=== PATIENT | male | born 1965 | race African-American/Black ===

== ENCOUNTER 2017-01-05 14:27 | Outpatient (CLI) | payer BC ==
[2016-10-31 20:09] VITALS: BP 110/68
[2017-01-05 15:29] LABS: eGFR (African) > 60; eGFR (Non-African) > 60
== END 2017-01-05 14:30 ==
LOC: LAB 14:27
PROVIDERS: ATTEND Physician Assistant
DX: E11.9 Type 2 diabetes mellitus without complications (principal); I10 Essential (primary) hypertension; E78.00 Pure hypercholesterolemia, unspecified
CPT/HCPCS: 36415; 80053; 80061; 83036

== ENCOUNTER 2017-01-22 07:36 | Emergency (ER) | payer BC, OTHER ==
[2017-01-22] MEDS ORDERED: Lidocaine 1% 5ml(IM or SUTURE)(PAIN CLINIC) ONE (07:48)
[2017-01-22] MEDS ORDERED: Lidocaine 1% 5ml(IM or SUTURE)(PAIN CLINIC) IJ ONE (07:49)
--- NOTE | 2017-01-22 08:00 | ED Physician Documentation ---
General Adult - HISTORIAN Historian: patient - HPI Stated Complaint: Left Finger Injury Chief Complaint: General Adult Onset: minutes Timing: still present Severity: moderate Further Comments: yes (Pt is a 51 yo male with injury to his L index finger after dropping a heavy board on his finger. Some bleeding. Tetanus is utd.) - ROS CONST: no problems EYES/ENT: none CVS/RESP: none GI/: none MS/SKIN/LYMPH: other (L index finger injury/laceration) - PAST HX Past History: other (DM, HTN) Allergies/Adverse Reactions: Allergies Allergy/AdvReac Type Severity Reaction Status Date / Time Iodinated Contrast Media - Allergy Verified 01/22/17 07:59 IV Dye Home Medications: Ambulatory Orders Medication Instructions Recorded Metformin HCl [Glucophage] 500 mg PO [id number] 09/17/15 Cephalexin [Keflex] 500 mg PO Q8H #15 capsule 01/22/17 Lisinopril [Lisinopril] 20 mg PO DAILY 01/22/17 Naproxen [Naprosyn] 500 mg PO DAILY 01/22/17 - SOCIAL HX Smoking History: cigarettes - FAMILY HX Family History: No - VITAL SIGNS Vital Signs: Vital Signs Temp Pulse Resp BP Pulse Ox 98 F 80 20 174/102 99 01/22/17 07:40 01/22/17 07:40 01/22/17 07:40 01/22/17 07:40 01/22/17 07:40 - REVIEWED ASSESSMENTS Nursing Assessment Reviewed: Yes Vitals Reviewed: Yes Procedures Wound Location: upper extremity (L index finger laceration with partial nail avulsion) Wound's Depth, Shape: irregular Wound Explored: clean Irrigated w/ Saline (ccs): 50 Betadine Prep?: Yes Anesthesia: 1% Lidocaine (digital block) Volume of Anesthetic: 8cc Wound Debrided: minimal Wound Repaired With: sutures (2 sutures through fingernail to secure it in place ) Suture Size/Type: 4:0, nylon Number of Sutures: 5 Sterile Dressing Applied?: Yes Progress - Progress Progress: X-ray L index finger: 3 mm avulsion fracture fragment medial aspect of the left index finger distal phalanx with adjacent soft tissue swelling and laceration. Degenerative changes interphalangeal joints left 3rd finger. tetanus utd Triple abx Rx keflex 500 mg tid x 7 days. F/u pcp in 7 days for suture removal. ED Results Lab/Radiology - Orders Orders: ED Orders Category Date Time Status FINGER 2 VIEWS OR MORE [RAD] Stat Exams 01/22/17 Ordered Lidocaine 1% 5ml(IM or SUTURE) [Xylocaine] Med 01/22/17 07:48 Discontinued 100 mg .ROUTE .STK-MED ONE Lidocaine 1% 5ml(IM or SUTURE) [Xylocaine] Med 01/22/17 07:49 Discontinued 50 mg IJ NOW ONE General Adult Physical Exam - PHYSICAL EXAM GENERAL APPEARANCE: mild distress NECK: normal inspection, supple RESPIRATORY: no resp distress BACK: normal inspection SKIN: other (laceration with partial nail avulsion L index finger.) EXTREMITIES: normal range of motion, other (laceration with partial nail avulsion L index finger.) NEURO: oriented X3, motor nml, sensation nml Discharge Clincal Impression: L index finger laceration, small avulsion fracture, L index Prescriptions: Cephalexin [Keflex] 500 mg PO Q8H #15 capsule Referrals: Sana Wren PA [Primary Care Provider] - Home Medications: Ambulatory Orders Metformin HCl [Glucophage] 500 mg PO [id number] 09/17/15 Cephalexin [Keflex] 500 mg PO Q8H #15 capsule 01/22/17 Lisinopril [Lisinopril] 20 mg PO DAILY 01/22/17 Naproxen [Naprosyn] 500 mg PO DAILY 01/22/17 Condition: Good Disposition: 01 HOME, SELF-CARE Decision to Admit: NO Decision Time: 08:58
[2017-01-22 09:44] VITALS: BP 158/68
--- NOTE | 2017-01-22 15:52 | Diagnostic Imaging Report ---
BRENDA ESTRADA [facility] [address] [facility] [address] 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 Avulsion fracture fragment left index finger distal phalynx medial aspect with adjacent soft tissue swelling and laceration Electronically signed on Jan 22, 2017 8:11:57 AM TAFE TEACHER by: Holly LOERA
== END 2017-01-22 09:40 | disposition home or self-care (01) ==
LOC: ED 07:36
DX: S62.621B Displaced fracture of middle phalanx of left index finger, initial encounter for open fracture (principal); W23.1XXA Caught, crushed, jammed, or pinched between stationary objects, initial encounter; Y99.0 Civilian activity done for income or pay; Y93.9 Activity, unspecified
CPT/HCPCS: 12001; 73140; 99283

== ENCOUNTER 2017-06-01 14:40 | Outpatient (CLI) | payer BC ==
[2017-06-01 15:21] LABS: eGFR (African) > 60; eGFR (Non-African) > 60
== END 2017-06-01 14:42 ==
LOC: LAB 14:40
PROVIDERS: ATTEND Physician Assistant
DX: E11.9 Type 2 diabetes mellitus without complications (principal); I10 Essential (primary) hypertension; R74.8 Abnormal levels of other serum enzymes
CPT/HCPCS: 36415; 80053; 80074; 83036

== ENCOUNTER 2017-06-21 16:45 | Emergency (ER) | payer BC ==
[2017-06-21 17:35] LABS: BASOPHILS % 0.5 (0.0-1.5); EOSINOPHILS % 3.3 % (0.0-6.8); MEAN CORPUSCULAR VOLUME 87.4 fl (80.0-100.0); MONOCYTES % 5.3 % (0.0-11.0); NEUTROPHILS # 6.3 # k/uL (1.4-7.7)
[2017-06-21 17:51] LABS: eGFR (African) > 60; eGFR (Non-African) > 60
[2017-06-21] MEDS ORDERED: 0.9 % SODIUM CHLORIDE 1,000 ML IV ONE ×2 (18:01→19:10)
--- NOTE | 2017-06-21 18:10 | ED Physician Documentation ---
General Adult - HISTORIAN Historian: patient - HPI Stated Complaint: headache , malaise, feeling "foggy" Chief Complaint: General Adult Onset: days ago Timing: still present Severity: moderate Further Comments: yes (Pt is a 52 yo aa male who has "been feeling foggy." He thinks his bp might be high. Pt also has a headache and malaise. No chest pain , sob. Pt has been having dry mouth and throat and feels like his abdomen is sore all over.) - ROS CONST: weakness EYES/ENT: other (dry mouth and throat) CVS/RESP: none GI/: other (chronic abd soreness/ ? muscle ache) MS/SKIN/LYMPH: none NEURO/PSYCH: other (feeling foggy) - PAST HX Past History: hypertension, other (DM) Allergies/Adverse Reactions: Allergies Allergy/AdvReac Type Severity Reaction Status Date / Time Iodinated Contrast Media - Allergy Verified 06/21/17 17:06 IV Dye Home Medications: Ambulatory Orders Medication Instructions Recorded Lisinopril [Lisinopril] 20 mg PO DAILY 01/22/17 Colchicine [Colcrys] 0.6 mg PO DAILY 06/21/17 - SOCIAL HX Smoking History: cigarettes Alcohol Use: heavy - FAMILY HX Family History: Yes (Sister: ovarian cancer. 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 Pt has some of the signs of Sjogren's syndrome. F/u pcp. ED Results Lab/Radiology - Lab Results Lab Results: Lab Results 06/21/17 06/21/17 06/21/17 17:30 17:30 17:30 WBC 9.30 K/ul K/ul (4.00-12.00) RBC 4.90 M/ul M/ul (3.90-5.20) Hgb 14.7 g/dL g/dL (12.0-18.0) Hct 42.8 % % (37.0-53.0) MCV 87.4 fl fl (80.0-100.0) MCH 30.0 pg pg (28.0-34.0) MCHC 34.3 g/dL g/dL (30.0-36.0) RDW 14.7 % H % (11.3-14.3) Plt Count 277 K/mm3 K/mm3 (130-400) Neut % (Auto) 67.8 % % (39.0-79.0) Lymph % (Auto) 21.7 % % (16.0-50.0) [place] % (Auto) 5.3 % % (0.0-11.0) Eos % (Auto) 3.3 % % (0.0-6.8) Baso % (Auto) 0.5 (0.0-1.5) Neut # (Auto) 6.3 # k/uL # k/uL (1.4-7.7) Lymph # (Auto) 2.0 # k/uL # k/uL (0.6-4.0) [place]linger # (Auto) 0.5 # k/uL # k/uL (0.0-0.9) Eos # (Auto) 0.3 # k/uL # k/uL (0.0-0.6) Baso # (Auto) 0.0 # k/uL # k/uL (0.0-0.5) Reactive Lymphs % 1.3 % % (0.0-5.0) Reactive Lymphs # 0.1 # k/uL # k/uL (0.0-0.8) Sodium 140 mmol/L mmol/L (136-145) Potassium 4.4 mmol/L mmol/L (3.5-5.0) Chloride 103 mmol/L mmol/L (98-110) Carbon Dioxide 28 mmol/L mmol/L (20-32) BUN 26 mg/dL mg/dL (10-26) Creatinine 1.1 mg/dL mg/dL (0.4-1.5) Estimated Creat Clear 123 Est GFR ( Amer) > 60 (60 - ) Est GFR (Non-Af Amer) > 60 (60 - ) Glucose 131 mg/dL H mg/dL (70-99) Calcium 10.1 mg/dL mg/dL (8.5-10.5) Total Bilirubin 0.8 mg/dL mg/dL (0.2-1.2) AST 35 U/L U/L (0-41) ALT 41 U/L U/L (0-45) Alkaline Phosphatase 79 U/L U/L (46-116) Creatine Kinase 794 U/L H U/L (0-225) Troponin I < 0.03 ng/mL L ng/mL (0.03-0.06) Total Protein 7.8 g/dL g/dL (6.0-8.5) Albumin 5.0 g/dL g/dL (3.0-5.5) - Orders Orders: ED Orders Category Date Time Status Orthostatics 1T Care 06/21/17 17:[address] IV Lock 1T Care 06/21/17 17:10 Active BNP [NT-proBNP] Stat Lab 06/21/17 17:30 Received CBC/PLATELET/DIFF Routine Lab 06/21/17 17:30 Completed CKMB Stat Lab 06/21/17 17:30 Received CMP Routine Lab 06/21/17 17:30 Completed CREATINE KINASE Routine Lab 06/21/17 17:30 Completed TROPONIN I (cTnI) Stat Lab 06/21/17 17:30 Completed UA [URINALYSIS] Routine Lab 06/21/17 Ordered 0.9 % Sodium Chloride [Normal Saline] 1,000 ml Med 06/21/17 18:01 Active IV Q1H EKG WITH COMPARISON Stat Ther 06/21/17 17:09 Ordered General Adult Physical Exam - PHYSICAL EXAM GENERAL APPEARANCE: mild distress EENT: eye inspection normal, dry mucous membranes NECK: normal inspection, supple RESPIRATORY: no resp distress, chest non-tender, breath sounds normal CVS: reg rate & rhythm, heart sounds normal ABDOMEN: soft, normal bowel sounds, tenderness (superficial mild tenderness (? muscle)) BACK: normal inspection, no CVA tenderness SKIN: warm/dry, normal color EXTREMITIES: non-tender, normal range of motion NEURO: oriented X3, motor nml, sensation nml Discharge Clincal Impression: Malaise, mild rhabdomyolysis Referrals: Sana Wren PA [Primary Care Provider] - Home Medications: Ambulatory Orders Lisinopril [Lisinopril] 20 mg PO DAILY 01/22/17 Colchicine [Colcrys] 0.6 mg PO DAILY 06/21/17 Condition: Stable Disposition: 01 HOME, SELF-CARE Decision to Admit: NO Decision Time: 07:45
[2017-06-21] MEDS ORDERED: ACETAMINOPHEN 325 MG TABLET PO ONE (18:33)
[2017-06-21 20:20] VITALS: BP 149/82
[2017-06-22 05:32] LABS: APPEARANCE,URINE CLEAR (CLEAR); COLOR,URINE YELLOW (YELLOW); OCCULT BLOOD,URINE NEGATIVE (NEGATIVE); UROBILINOGEN URINE 0.2 Eu (0.2-1.0)
== END 2017-06-21 20:24 | disposition home or self-care (01) ==
LOC: ED 16:45
DX: R53.81 Other malaise (principal); M62.82 Rhabdomyolysis
CPT/HCPCS: 80053; 82550; 82553; 83880; 84484; 85025; J7030; 81002; 96360; 99283; S1016

== ENCOUNTER 2017-10-05 16:57 | Emergency (ER) | payer BC, OTHER ==
[2017-10-05] MEDS ORDERED: LISINOPRIL 20 MG TABLET PO ONE (17:27)
--- NOTE | 2017-10-05 17:33 | ED Physician Documentation ---
Headache - HISTORIAN Historian: patient - HPI Stated Complaint: headache Chief Complaint: Headache Additional Information: headache today, last bp check > 1 year ago Onset: hours (5) Timing: abrupt New Gradual Onset: Yes Exposure To: none Severity: moderate Quality: throbbing Associated Symptoms: dizziness Preceding Symptoms: denies: visual disturbance, typical of prior aura(s) Exacerbated By: denies: light, noise, movement, position Further Comments: no - ROS NEURO/PSYCH: denies: confusion, anxiety, depression, fainting EYES/ENT: denies: sore throat, difficulty swallowing, sinus pain, drainage CVS/RESP: none GI/: denies: abdominal pain, diarrhea, problems urinating, incontinence MS/SKIN/LYMPH: denies: muscle aches, back pain, rash, skin lesions, swollen glands all systems neg except as marked: Yes - PAST HX Medical History: hypertension, other (gout) Surgical History: no surgical history Immunizations: referred to PCP Allergies/Adverse Reactions: Allergies Allergy/AdvReac Type Severity Reaction Status Date / Time Iodinated Contrast Media - Allergy Verified 10/05/17 17:53 IV Dye Home Medications: Ambulatory Orders Medication Instructions Recorded Lisinopril [Lisinopril] 20 mg PO DAILY 01/22/17 Colchicine [Colcrys] 0.6 mg PO DAILY 06/21/17 - SOCIAL HX Smoking History: cigarettes Alcohol Use: heavy Drug Use: none - Family HX Family History: none - VITAL SIGNS Vital Signs: Vital Signs Temp Pulse Resp BP Pulse Ox 97.8 F 79 20 163/97 97 10/05/17 16:57 10/05/17 17:59 10/05/17 17:59 10/05/17 17:59 10/05/17 17:59 - REVIEWED ASSESSMENTS Nursing Assessment Reviewed: Yes Vitals Reviewed: Yes Progress - Results/Orders Results/Orders: no testing ordered - Progress Progress: pt. given 20 mg p.o. Lisinopril and discharged Critical Care Note - Critical Care Note Total Time (mins): 0 ED Results Lab/Radiology - Lab Results Lab Results: none ordered - Radiology Radiology Impressions: none ordered - Orders Orders: ED Orders Category Date Time Status Lisinopril [Prinivil] Med 10/05/17 17:27 Discontinued 20 mg PO NOW ONE Headache Physical Exam - EXAM General Appearance: no acute distress, alert EENT: no facial swelling, eyes nml inspection, PERRL Neck: normal inspection, thyroid normal, supple Respiratory: no resp distress, chest non-tender, breath sounds normal CVS: reg. rate & rhythm, heart sounds nml Abdomen: non-tender, no organomegaly, nml bowel sounds, no distention Skin: color nml, no rash Extremitites: non-tender, normal range of motion, no evidence of injury, no edema - NEURO/PSYCH Higher Functions: alert, oriented x3, nml speech, mood/affect nml Cranial: nml as tested, no evidence of acute CVA Cerebellar: nml as tested Sensorimotor: motor nml, sensation nml Discharge Clincal Impression: Essential hypertension Referrals: Primary Doctor,No [Primary Care Provider] - 2 Days Comments: discharged with script for lisinopril 20 mg #60 1 p.o. bid Condition: Stable Disposition: 01 HOME, SELF-CARE Decision to Admit: NO Decision Time: 17:32
[2017-10-05 18:01] VITALS: BP 163/97
== END 2017-10-05 17:58 | disposition home or self-care (01) ==
LOC: ED 16:57
DX: I10 Essential (primary) hypertension (principal)
CPT/HCPCS: 99283

== ENCOUNTER 2018-02-23 10:43 | Emergency (ER) | payer BC ==
--- NOTE | 2018-02-23 10:56 | ED Physician Documentation ---
Shoulder Injury/Pain - HISTORIAN Historian: patient - HPI Stated Complaint: left shoulder pain Chief Complaint: Shoulder Injury/ Pain Onset: other ("years ago" he hurt his left shoulder and he has never seen a "dr about the pain" He states on and off he has had some pain but this pain kept him from going to work. He does have high blood pressure and bacteria in his stomach but he has not filled his meds for his stomach. ) Where: other (not sure where) Pain: pain intermittent Context: fall Associated Symptoms: denies: weakness, tingling, unable to move shoulder, numbness Further Comments: yes (Pain with active elevation. He has not tried OTC meds) - ROS CONST: no problems CVS/RESP: denies: chest pain, shortness of breath, cough GI/: denies: vomiting MS/SKIN/LYMPH: denies: neck pain, back pain, rash NEURO: denies: headache, anxiety, depression - PAST HX Past History: diabetes Type 2, other (HTN ) Immunizations: UTD Allergies/Adverse Reactions: Allergies Allergy/AdvReac Type Severity Reaction Status Date / Time Iodinated Contrast Media - Allergy Verified 02/23/18 11:01 IV Dye Home Medications: Ambulatory Orders Medication Instructions Recorded Lisinopril [Lisinopril] 20 mg PO DAILY 01/22/17 Colchicine [Colcrys] 0.6 mg PO DAILY 06/21/17 - SOCIAL HX Smoking History: cigarettes Alcohol Use: none Drug Use: none - FAMILY HX Family History: none - VITAL SIGNS Vital Signs: Vital Signs Temp Pulse Resp BP Pulse Ox 70 18 175/94 98 02/23/18 10:45 02/23/18 10:45 02/23/18 11:09 02/23/18 10:45 - REVIEWED ASSESSMENT Nursing Assessment Reviewed: Yes Vitals Reviewed: Yes Shoulder Injury Physical Exam - Physical Exam General Appearance: no acute distress Shoulder: no acute distress, no dislocation, limited ROM (active elevation ), other (Pulse + - sensation + cap refill + ). No: soft-tissue tenderness, bony tenderness, swelling, deformity Upper Extremity: no injury below shoulder Neuro: sensation nml, motor nml Vascular: no vascular compromise, motor nml, sensation nml Skin: warm/dry, normal color Respiratory: chest non-tender, breath sounds nml, no resp. distress, heart sounds nml CVS: reg rate & rhythm, heart sounds normal, no murmur Abdomen: soft Discharge Clincal Impression: Chronic left shoulder pain Referrals: Primary Doctor,No [Primary Care Provider] - 2 Days Additional Instructions: 1. Take meds 2. Follow up with PCP on HTN med changes 3. Ibuprofen 800 mg Take 1 by mouth ever 12 hours as needed for pain 4. Cyclobenzaprine 10 mg take by mouth every 8 hours as needed for pain 5. Ice 6. Return to ER for increased symptoms or concerns Condition: Stable Disposition: 01 HOME, SELF-CARE Decision to Admit: NO Date of Decison to Admit: 02/23/18 Decision Time: 11:14
[2018-02-23 11:18] VITALS: BP 163/76
== END 2018-02-23 11:16 | disposition home or self-care (01) ==
LOC: ED 10:43
DX: M25.512 Pain in left shoulder (principal)
CPT/HCPCS: 99282

== ENCOUNTER 2018-05-01 10:47 | Outpatient (CLI) | payer BC | END 2018-05-01 10:50 | LOC: POD 10:47 | PROVIDERS: ATTEND Podiatrist Public Medicine | DX: E11.9 Type 2 diabetes mellitus without complications (principal); M20.11 Hallux valgus (acquired), right foot; M20.12 Hallux valgus (acquired), left foot; M21.41 Flat foot [pes planus] (acquired), right foot; M21.42 Flat foot [pes planus] (acquired), left foot; B35.1 Tinea unguium; L84 Corns and callosities; L60.0 Ingrowing nail; M79.674 Pain in right toe(s); M79.675 Pain in left toe(s) | CPT/HCPCS: 11721; 99213 ==

== ENCOUNTER 2018-10-23 11:13 | Emergency (ER) | payer BC, OTHER ==
--- NOTE | 2018-10-23 11:28 | ED Physician Documentation ---
Lower Extremity Problem - HISTORIAN Historian: patient - HPI Stated Complaint: right knee locking up Chief Complaint: Lower Extremity Problem Additional Information: Patient presents to ED with a 2-3 month history of right knee locking. He states his right knee has been popping more lately and began to lock into the straight position about 2-3 months ago. He has the same problem on his left knee years ago which was fixed by surgery. He denies the knee giving out. Location of Injury: R knee Onset: days ago (90) Timing: still present Duration: intermittent episodes Recent Injury: No Where: home Severity: mild Quality: other (right knee locks up) Exacerbated By: nothing Relieved By: nothing Associated Symptoms: denies: chest pain, shortness of breath - ROS CONST: denies: fever MS/SKIN/LYMPH: denies: calf pain, joint pain CVS/RESP: none GI/: none EYES/ENT: none - PAST HX Past History: none PE Risk Factors: none Surgeries/Procedures: none Allergies/Adverse Reactions: Allergies Allergy/AdvReac Type Severity Reaction Status Date / Time Iodinated Contrast- Oral and Allergy Verified 10/23/18 11:54 IV Dye [Iodinated Contrast Media - IV Dye] Home Medications: Ambulatory Orders Medication Instructions Recorded Lisinopril 20 mg PO DAILY 01/22/17 Colchicine [Colcrys] 0.6 mg PO DAILY 06/21/17 - SOCIAL HX Smoking History: non-smoker Alcohol Use: none Drug Use: none - FAMILY HX Family History: none - VITAL SIGNS Vital Signs: Vital Signs Temp Pulse Resp BP Pulse Ox 97.5 F L 93 H 18 146/87 99 10/23/18 11:22 10/23/18 11:22 10/23/18 11:22 10/23/18 11:22 10/23/18 11:22 - REVIEWED ASSESSMENTS Nursing Assessment Reviewed: Yes Vitals Reviewed: Yes ED Results Lab/Radiology - Radiology Radiology Impressions: 3 views of the right knee History: RT KNEE, PT STATES RT KNEE HAS BEEN LOCKING UP X3/4 MONTHS. NO KNOWN INJURY no comparison studies No obvious evidence of acute fracture or dislocation of the right knee. Patellar enthesophytes are present. No suprapatellar effusion Impression: No evidence of acute fracture or dislocation of the right knee. Patellar enthesophytes. Electronically signed on Oct 23, 2018 12:18:51 PM BULK PICKER by: Holly Souza - Orders Orders: ED Orders Category Date Time Status KNEE 3 VIEWS [RAD] Stat Exams 10/23/18 Ordered Lower Extremity Problem - EXAM General Appearance: no distress Hips: right hip: non-tender Legs: right: non-tender Knees: right: non-tender, normal range of motion, no evidence of injury, swelling Ankle: right: non-tender Foot: right foot: non-tender Neuro/Tendon: normal sensation EENT: RADHA RESPIRATORY: no resp distress, breath sounds normal CVS: reg rate & rhythm JOINT: Nml gait/weight bearing VASCULAR: no vascular compromise, pulses full/equal NEURO/PSYCH: oriented X3, motor nml SKIN: warm/dry BACK: normal inspection Discharge Clincal Impression: Locking of right knee Referrals: Primary Doctor,No [Primary Care Provider] - 2 Days Additional Instructions: 1. tylenol and/or ibuprofen as needed for pain 2. Follow up with PCP within 1 week for orthopedic referral 3. Return to ED if knee locks in position and will not move. Condition: Stable Disposition: 01 HOME, SELF-CARE Decision to Admit: NO Date of Decison to Admit: 10/23/18 Decision Time: 12:24
[2018-10-23 11:53] VITALS: BP 146/87
--- NOTE | 2018-10-24 03:43 | Diagnostic Imaging Report ---
VIRGINIA ONEILL [facility] [address] [address] [facility] [address] [place], [place]. [address] Report Submission Date: Oct 23, 2018 12:18:51 PM BOOM MASTER Patient Study Name: MARICRUZ ROGERS Date: Oct 23, 2018 11:34:56 AM BOOM MASTER Modality Type: DX Gender: M Description: LOWER EXTREMITY : 63 Institution: [facility] Physician: VIRGINIA ONEILL 3 views of the right knee History: RT KNEE, PT STATES RT KNEE HAS BEEN LOCKING UP X3/4 MONTHS. NO KNOWN INJURY no comparison studies No obvious evidence of acute fracture or dislocation of the right knee. Patellar enthesophytes are present. No suprapatellar effusion Impression: No evidence of acute fracture or dislocation of the right knee. Patellar enthesophytes. Electronically signed on Oct 23, 2018 12:18:51 PM BOOM MASTER by: Holly LOERA
== END 2018-10-23 12:28 | disposition home or self-care (01) ==
LOC: ED 11:13
DX: M23.91 Unspecified internal derangement of right knee (principal)
CPT/HCPCS: 73562; 99282; 99283

== ENCOUNTER 2019-07-14 10:58 | Emergency (ER) | payer BC, OTHER ==
[2019-07-14 11:39] LABS: BASOPHILS % 0.3 % (0.0-1.5); NEUTROPHILS # 5.2 # k/uL (1.4-7.7)
[2019-07-14 11:52] LABS: eGFR (Non-African) > 60
--- NOTE | 2019-07-14 12:21 | ED Physician Documentation ---
General Adult - HISTORIAN Historian: patient - HPI Stated Complaint: just dont feel right Chief Complaint: General Adult Onset: days ago (Sunday) Further Comments: yes (54 year old male patient presents with complaint of "don't feel right". Patient reports symptoms started Sunday, "I didn't feel good enough to go to work". Patient denies CP, SOB, N/V, fever, cough or chills.) - ROS CONST: weakness EYES/ENT: none CVS/RESP: none GI/: none MS/SKIN/LYMPH: none NEURO/PSYCH: denies: headache, fainting, dizziness, tingling, numbness, difficulty walking, difficulty with speech, anxiety, depression, other - PAST HX Past History: hypertension, other (Prostate CA) Other History: diabetes Type 2 Surgeries/Procedures: other Allergies/Adverse Reactions: Allergies Allergy/AdvReac Type Severity Reaction Status Date / Time Iodinated Contrast Media Allergy Verified 07/14/19 11:14 [Iodinated Contrast Media - IV Dye] Home Medications: Ambulatory Orders Medication Instructions Recorded Lisinopril 20 mg PO DAILY 01/22/17 Colchicine [Colcrys] 0.6 mg PO DAILY 06/21/17 - SOCIAL HX Smoking History: cigarettes - FAMILY HX Family History: No - VITAL SIGNS Vital Signs: Vital Signs Temp Pulse Resp BP Pulse Ox 97.2 F L 86 16 136/100 97 07/14/19 11:01 07/14/19 11:01 07/14/19 11:01 07/14/19 11:01 07/14/19 11:01 - REVIEWED ASSESSMENTS Nursing Assessment Reviewed: Yes Vitals Reviewed: Yes Progress - Progress Progress: Lab work reviewed. Patient requesting work note for Sunday through Sunday. Explained work note for today's visit would be provided. ED Results Lab/Radiology - Lab Results Lab Results: Lab Results 07/14/19 07/14/19 11:34 11:34 WBC 7.50 K/ul K/ul (4.00-12.00) RBC 5.21 M/ul H M/ul (3.90-5.20) Hgb 14.9 g/dL g/dL (12.0-18.0) Hct 44.3 % % (37.0-53.0) MCV 85.0 fl fl (80.0-100.0) MCH 28.6 pg pg (28.0-34.0) MCHC 33.6 g/dL g/dL (30.0-36.0) RDW 13.0 % % (11.3-14.3) Plt Count 237 K/mm3 K/mm3 (130-400) Neut % (Auto) 69.6 % % (39.0-79.0) Lymph % (Auto) 19.0 % % (16.0-50.0) [place] % (Auto) 7.4 % % (0.0-11.0) Eos % (Auto) 3.7 % % (0.0-6.8) Baso % (Auto) 0.3 % % (0.0-1.5) Neut # (Auto) 5.2 # k/uL # k/uL (1.4-7.7) Lymph # (Auto) 1.4 # k/uL # k/uL (0.6-4.0) [place] # (Auto) 0.6 # k/uL # k/uL (0.0-0.9) Eos # (Auto) 0.3 # k/uL # k/uL (0.0-0.6) Baso # (Auto) 0.0 # k/uL # k/uL (0.0-0.5) Sodium 139 mmol/L mmol/L (137-145) Potassium 4.1 mmol/L mmol/L (3.5-5.1) Chloride 100 mmol/L mmol/L (98-107) Carbon Dioxide 23 mmol/L mmol/L (22-30) Anion Gap 20.1 BUN 34 mg/dL H mg/dL (9-20) Creatinine 1.05 mg/dL mg/dL (0.66-1.25) Estimated Creat Clear 140 Est GFR ( Amer) > 60 (60 - ) Est GFR (Non-Af Amer) > 60 (60 - ) Glucose 243 mg/dL H mg/dL (74-106) Calcium 10.2 mg/dL mg/dL (8.4-10.2) Total Bilirubin 1.0 mg/dL mg/dL (0.2-1.3) AST 52 U/L H U/L (15-46) ALT 54 U/L U/L (13-69) Alkaline Phosphatase 116 U/L U/L (38-126) Total Protein 7.9 g/dL g/dL (6.3-8.2) Albumin 4.7 g/dL g/dL (3.5-5.0) - Orders Orders: ED Orders Category Date Time Status CBC/PLATELET/DIFF Stat Lab 07/14/19 11:34 Completed CMP Stat Lab 07/14/19 11:34 Completed UA W MICRO [UA W/MICRO IF INDICATED] Routine Lab 07/14/19 11:36 Ordered General Adult Physical Exam - PHYSICAL EXAM GENERAL APPEARANCE: [id number] N EENT: eye inspection normal, ENT inspection normal, pharynx normal, no signs of dehydration, RADHA, no nystagmus, TM's nml RESPIRATORY: no resp distress, chest non-tender, breath sounds normal CVS: reg rate & rhythm, heart sounds normal, equal pulses, no murmur, no gallop, PMI nml, no JVD, no friction rub, 24 ABDOMEN: soft, no organomegaly, normal bowel sounds, no abdominal bruit, no distension BACK: normal inspection, no CVA tenderness SKIN: normal color, warm/dry, NR, INT, PAL, DR EXTREMITIES: non-tender, normal range of motion, no evidence of injury, no edema, J, SOFTWARE TOOLS DEVELOPER NEURO: oriented X3, CN's nml as tested, motor nml, sensation nml, mood/affect nml Discharge Clincal Impression: Malaise Referrals: Primary Doctor,No [Primary Care Provider] - 2 Days Condition: Stable Disposition: 01 HOME, SELF-CARE Decision to Admit: NO Decision Time: 12:20
[2019-07-14 12:32] VITALS: BP 138/95
[2019-07-14 13:17] LABS: APPEARANCE,URINE CLEAR (CLEAR); COLOR,URINE YELLOW (YELLOW); OCCULT BLOOD,URINE NEGATIVE (NEGATIVE); PH URINE 5.5 (5.0 - 8.0); UROBILINOGEN URINE 0.2 Eu (0.2-1.0)
== END 2019-07-14 12:25 | disposition home or self-care (01) ==
LOC: ED 10:58
DX: R53.81 Other malaise (principal)
CPT/HCPCS: 80053; 81002; 85025; 99282